=== PATIENT | female | born 1985 | race Caucasian/White ===

== ENCOUNTER 2018-11-12 09:10 | Emergency (ER) | payer OTHER ==
[~2018-11-12] VITALS: Ht 160 cm; Wt 99.8 kg
[~2018-11-12 09:10] MED LIST: ADVAIR 250-501 EACH IH; ALBUTEROL INHAL17 GM IH; ALIGN4 MG PO; AMANTADINE100 M1 PO; BUSPAR 5 MG TABL5 M1 PO; CIPROFLOXACIN500 M1 PO; CYMBALTA60 MG PO; FLEXERIL PO; GABAPENTIN 100100 MG PO; IBUPROFEN 600600 M1 PO; NEURONTIN 300300 M1 PO; NORCO 5-325 TA1 EACH PO; PEPCID20 MG PO; PERCOCET 5-3251 EACH PO; PROZAC 20 MG20 M1 PO; ZANTAC 150MG T150 MG PO
[2018-11-12 10:28] VITALS: BP 168/116
[2018-11-12] MEDS ORDERED: PROMETHAZINE V118 M1 PO (11:19)
[2018-11-12] MEDS ORDERED: DOXYCYCLINE 10100 MG PO (11:19)
[2018-11-12] MEDS ORDERED: TESSALON PERLE100 MG PO (11:19)
== END 2018-11-12 12:05 | disposition home or self-care (01) ==
LOC: ER 09:10
DX: J18.9 Pneumonia, unspecified organism (principal); J45.909 Unspecified asthma, uncomplicated; Z91.040 Latex allergy status; Z88.0 Allergy status to penicillin; Z90.49 Acquired absence of other specified parts of digestive tract; Z98.890 Other specified postprocedural states; Z87.442 Personal history of urinary calculi